=== PATIENT | male | born 2000 | race Caucasian/White ===

== ENCOUNTER → 2021-04-08 | Outpatient (CLI) | payer OTHER ==
--- NOTE | 2021-04-08 19:12 | US ---
EXAMINATION TYPE: US st tissue head/neck DATE OF EXAM: 04/08/2021 COMPARISON: NONE CLINICAL HISTORY: 20-year-old male R59.0 ENLARGED LYMPH NODES. Patient states he has multiple palpabl e lumps along his upper back and neck Technique: Multiple sonographic images along the posterior aspect of the neck and upper back at the p atient's palpable sites. FINDINGS: Rn Clinical Resource notes: Multiple lymph nodes seen along patients upper back and back of neck with largest measuring 1.4 x 0.5 x 1.7cm IMPRESSION: Multiple lymph nodes along the posterior aspect of the neck and upper back at the patient's palpable sites. These may be reactive/post inflammatory. Clinical follow-up is recommended. If any enlargement is noted, the area can be reimaged for sampling can BE considered.
== END | disposition home or self-care (01) ==
LOC: RADUSWWP 15:20
PROVIDERS: ATTEND Family Medicine
DX: R59.0 Localized enlarged lymph nodes (principal)
CPT/HCPCS: 76536

== ENCOUNTER → 2021-05-05 | Outpatient (CLI) | payer OTHER ==
--- NOTE | 2021-05-05 16:08 | US ---
EXAMINATION TYPE: US thyroid st tissue head/neck DATE OF EXAM: 05/05/2021 COMPARISON: US Neck soft tissue 03/2021 CLINICAL HISTORY: R59.0 LOCALIZED ENLARGED LYMPH NODES. Follow up for lymphadenopathy. GLAND SIZE: Right Lobe: 4.2 x 1.2 x 1.1 cm Overall Parenchyma: homogenous Left Lobe: 4.1 x 1.2 x 1.2 cm Overall Parenchyma: homogeneous Isthmus Thickness: 0.25 cm NODULES RIGHT: # of nodules measured on right: 1 1. 0.9 X 0.8 x 0.7 cm, lower lateral, solid or almost completely solid, hypoechoic nodule, which i s wider than tall, with smooth margins, without echogenic foci. TR 4 LEFT: # of nodules measured on left: 0 ISTHMUS: # of nodules measured in the isthmus: 0 Bilateral neck scanned, no evidence of lymphadenopathy on the left. Right neck shows lymph nodes that were previously seen; largest seen right back side of upper neck measuring 1.9 x 0.6 x 1.3 cm. IMPRESSION: Moderately suspicious nodule right lobe thyroid. Consider follow-up 2017 ACR TI-RADS LEVEL: TR-RADS 4 - Moderately Suspicious: Follow if > 1 cm, FNA if > 1.5 cm *Highest TI-RADS level nodule reported
== END | disposition home or self-care (01) ==
LOC: RADUSWWP 15:25
PROVIDERS: ATTEND Family Medicine
DX: R59.0 Localized enlarged lymph nodes (principal)
CPT/HCPCS: 76536

== ENCOUNTER → 2021-07-14 | Outpatient (CLI) | payer OTHER ==
[2021-07-14 22:38] LABS: Basophils # (A) 0.05 X 10*3/uL (0.00-0.10); Basophils % (A) 0.5 %; Eosinophils # (A) 0.02 X 10*3/uL (0.04-0.35); Eosinophils % (A) 0.2 %; HCT 47.3 % (39.6-50.0); HGB 15.7 g/dL (13.0-17.0); Immature Grans, Automated 0.3 %; Lymphocytes # (A) 2.51 X 10*3/uL (0.90-5.00); Lymphocytes % (A) 25.4 %; MCH 29.5 pg (27.0-32.0); MCHC 33.2 g/dL (32.0-37.0); MCV 88.9 fL (80.0-97.0); Mean Platelet Volume 9.8 fL (9.5-12.2); Monocytes # (A) 0.65 X 10*3/uL (0.20-1.00); Monocytes % (A) 6.6 %; NRBC Per 100 WBC 0 /100 WBCS (0.0-0.0); Neutrophils # (A) 6.63 X 10*3/uL (1.80-7.70); Platelet Count 357 X 10*3/uL (140-440); RBC 5.32 X 10*6/uL (4.40-5.60); RDW 13.2 % (11.5-14.5); WBC 9.89 X 10*3/uL (4.50-10.00)
[2021-07-15 02:24] LABS: Albumin 5.3 g/dL (3.8-4.9); Albumin/Globulin Ratio 2.04 (1.60-3.17); Anion Gap 18.6 mmol/L (10.00-18.00); BUN/Creat Ratio 17.67 Ratio (12.00-20.00); Blood Urea Nitrogen 15.9 mg/dL (9.0-27.0); Calcium 9.6 mg/dL (8.7-10.3); Carbon Dioxide 22.4 mmol/L (20.0-27.5); Globulin 2.6 g/dL (1.6-3.3); Non-African American GFR(CKD) 123.4 (60.0-200.0); Potassium 4.2 mmol/L (3.5-5.5); T4, Free (Free Thyroxine) 0.84 ng/dL (0.830-1.430); Total Bilirubin 0.4 mg/dL (0.30-1.20); Total Protein 7.9 g/dL (6.2-8.2)
== END | disposition home or self-care (01) ==
LOC: LABWHC1 14:31
PROVIDERS: ATTEND Otolaryngology
DX: E04.1 Nontoxic single thyroid nodule (principal); R53.83 Other fatigue
CPT/HCPCS: 36415; 80053; 82306; 82330; 82607; 83970; 84439; 84443; 84481; 85025; 86376

== ENCOUNTER → 2022-04-19 | Outpatient (CLI) | payer OTHER ==
--- NOTE | 2022-04-19 15:48 | US ---
EXAMINATION TYPE: US thyroid st tissue head/neck DATE OF EXAM: 04/19/2022 COMPARISON: Prior thyroid ultrasound April 08, 2021 and May 05, 2021 CLINICAL HISTORY: E04.1 NONTOXIC SINGLE THYROID NODULE. f/u exam, previous lymph node measured has si nce gone away per patient. GLAND SIZE: Right Lobe: 4.9 x 1.2 x 1.6cm Overall Parenchyma: homogeneous Left Lobe: 4.3 x 1.3 x 1.4 cm Overall Parenchyma: homogeneous Isthmus Thickness: 0.5 cm NODULES RIGHT: # of nodules measured on right: 1 1. 0.8 X 0.6 x 0.6 cm, upper , solid or almost completely solid, hypoechoic nodule, which is taller than wide, with smooth margins, without echogenic foci. Prior size: 0.9 x 0.8 x 0.7 cm LEFT: # of nodules measured on left: 0 ISTHMUS: # of nodules measured in the isthmus: 0 Bilateral neck scanned, no evidence of lymphadenopathy. Homogeneous normal-sized thyroid with stable 8 mm hypoechoic solid nodule upper pole of the right thy roid. IMPRESSION: As above. No new or enlarging nodules.
== END | disposition home or self-care (01) ==
LOC: RADUSWWP 14:56
PROVIDERS: ATTEND Family Medicine
DX: E04.1 Nontoxic single thyroid nodule (principal)
CPT/HCPCS: 76536